=== PATIENT | male | born 1985 | race Caucasian/White ===

== ENCOUNTER 2023-07-11 20:29 | Emergency (ER) | payer OTHER, SELFPAY ==
[2023-07-11 20:31] VITALS: BP 144/77
[2023-07-11 23:43] VITALS: BP 144/77
[2023-07-11] MEDS: AUGMENTIN 875 MG/125 MG 1 TABLET PO (23:51)
--- NOTE | 2023-07-12 00:15 | ED.SKININJ ---
HPI-Injury
General
Chief Complaint: Bite
Source: patient
Exam Limitations: none
Time Seen by Provider: 07/11/23 22:35
Nursing documentation reviewed up to this point in time: agreed with
Travel History
Have you had any contact with someone who has COVID-19?: No
Do you have any symptoms of coronavirus? Fever > 100 degrees, chills, cough, shortness of breath, sore throat, loss of taste or smell, muscle aches, or headache?: No
History of Present Illness-Injury
Is this injury a work related problem?: No
Is pt an associate of [facility]?: No
Initial Injury comments:
Accidentally bit by his dog. Sustained a bite to left ear. Injury occurred just [employer]. Dog is UTD wtih rabies. Pt declines Tdap. Reports last tdap >5yrs, declines update.
Past History
Past History
ED Past Medical History: None
ED Past Surgical History: None
Social History
Tobacco: Non-smoker
Review of Systems
Review of Systems
Allergies reviewed?: Yes
All Other Systems: ROS reviewed and negative except as documented in HPI and ROS
Constitutional: Reports no symptoms
Skin: Reports other (dog bite left ear helix)
Neurological: Reports no symptoms
Psychiatric: Reports no symptoms
Skin Exam
Bite
left helix:
Type: animal
Skin has: full thickness laceration
Laceration length in cm: 2
Surrounding area around bite has: no evidence of erythema
Distal skin color and temperature: normal-warm & good color
Normal distal neurovascular exam: Yes
Phy Exam
General Physical Exam
General Presentation: well appearing
General age: appears stated age
General Skin: warm and dry
General Habitus: normal
General Mental: alert
Skin Exam
Skin Exam: normal color, warm/dry, no rash and other (2.5cm horizontal laceration (dog bite) left ear helix)
Psychiatric Exam
Psychiatric Exam: normal mood/affect
Course
Orders/Labs/Results
Orders:
Orders
07/11/23 23:38
Amoxicillin 875 mg/Clav 125 mg [Augmentin 875 mg/125 mg] 1 tablet PO NOW STA
Vital Signs
Initial and Last Documented VS:
Initial Vital Signs
Temp Pulse Resp BP Pulse Ox
98.3 F 87 18 144/77 97
07/11/23 20:31 07/11/23 20:31 07/11/23 20:31 07/11/23 20:31 07/11/23 20:31
Last Documented Vital Signs
Temp Pulse Resp BP Pulse Ox
98.3 F 87 18 144/77 97
07/11/23 20:31 07/11/23 20:31 07/11/23 20:31 07/11/23 23:43 07/11/23 20:31
Procedures
Laceration Closure
Left ear helix:
Status of Wound: clean
Description of Wound Edges: sharp
Preparation: cleaned with saline
Anesthesia: 1% Lidocaine
Revision/Debridement: routine- no revision
Wound exploration: explored to base- no FB
Type of Closure: single layer closure
Skin Closure Material: 6-0 prolene
*Critical Care Note
Total Time (30-74mins, 75-104mins- exclusive of procedures): Not Applicable
ED Attending Note
-
Portions of this chart may have been created with voice recognition software.� Occasional wrong word or��sound alike� substitutions may have occurred due to the inherent limitations of voice recognition software.
Discharge Plan
Departure
Patient Disposition: Home (Routine Discharge)
Date of Disposition: 07/11/23
Time of Disposition: 23:42
Patient with high blood pressure during this ER visit?: No
Condition: Good
Covid-19: Not Applicable
Discharge Problem:
Dog bite of left ear
Instructions: Animal Bites (DC), Laceration Repair With Stitches (DC)
Prescriptions:
New
amoxicillin-pot clavulanate 875-125 mg tablet
1 tab PO BID Qty: 14 0RF
No Action
No Meds [No Current Medications]
0
Referrals:
Shabnam Harrell DO [Family Provider] - Follow up in 5-7 days (Sutures can be removed in 5-7 days.)
Interventions
Interventions:
*Risk Screen - Suicide Last Done: 07/11/23 20:31
*General Assessment Last Done: 07/11/23 20:31
*Neglect/Abuse Screening Last Done: 07/11/23 20:31
ED- Fall Risk Assessment Last Done: 07/11/23 20:31
*ED COVID-19 Vaccine History Last Done: 07/11/23 20:31
*Nursing Disposition Last Done: 07/11/23 23:43
ED-Skin Assessment Last Done: 07/11/23 23:42
Discharge Date and Time
Discharge Date/Time: 07/11/23 23:55
== END 2023-07-11 23:55 | disposition home or self-care (01) ==
LOC: EMR 20:29
PROVIDERS: EMERGENCY PHYSICIAN Emergency Medicine; FAMILY PHYSICIAN Family Medicine
DX: S01.312A Laceration without foreign body of left ear, initial encounter (principal); W54.0XXA Bitten by dog, initial encounter
CPT/HCPCS: 99283; 12011